=== PATIENT | male | born 1945 | race Caucasian/White ===

== ENCOUNTER 2017-01-14 10:15 | Outpatient (CLI) | payer MEDICARE | END 2017-01-14 10:16 | disposition home or self-care (01) | DX: R05 Cough (principal) ==

== ENCOUNTER 2022-07-11 23:14 | Emergency (ER) | payer MEDICARE ==
--- NOTE | 2022-07-12 00:14 | ED Physician Documentation ---
PD HPI UPPER EXT INJURY - Stated complaint Stated Complaint: FINGER INJ - Chief complaint Chief Complaint: Laceration - History obtained from History obtained from: Patient - History of Present Illness Location: Right, Finger Type of injury: Crush Where injury occurred: Work Timing - onset: Enter time (22:00), Today Timing - details: Abrupt onset Pain level now: 0 Associated symptoms: No: Numbness Contributing factors: No: Anticoagulated Recently seen: Not recently seen - Additonal information Additional information: at approximately 10 PM tonight, patient was leaving work when a heavy wood door closed on his right fifth finger, causing laceration. Despite obvious deformity, he is in NAD and says he is not having any pain. He says he is ambidextrous but favors his right hand. He is not UTD on tetanus; he says his last tetanus shot was many decades ago and it caused a severe allergic reaction. Review of Systems Skin: reports: Laceration (s) Musculoskeletal: reports: Other (patient denies pain despite obvious injury) PD PAST MEDICAL HISTORY - Past Medical History Past Medical History: No - Past Surgical History Past Surgical History: Yes Ortho: Arthroscopic surgery - Present Medications Home Medications: Ambulatory Orders Medication Instructions Recorded Confirmed No Known Home Medications 07/11/22 07/11/22 - Allergies Allergies/Adverse Reactions: Allergies Allergy/AdvReac Type Severity Reaction Status Date / Time tetanus and diphtheria AdvReac Cramps Verified 07/11/22 23:26 toxoids - Social History Does the pt smoke?: No Smoking Status: Never smoker - Immunizations Immunizations are current?: No Immunizations: TDAP current <10years PD ED PE NORMAL - Vitals Vital signs reviewed: Yes - General General: Alert and oriented X 3, No acute distress, Well developed/nourished - Neuro Neuro: No sensory deficit (LTS remains intact at finger tip) PD ED PE EXPANDED - Extremities Extremities: Other (right fifth finger: laceration along lateral/radial aspect from middle phalanx to tip of finger with extension of the laceration over dorsal surface of the DIP joint. No exposed bone or cartilege. Nail is avulsed from the proximal nail fold although it remains intact and adhesed to nail bed) Results - Vitals Vitals: Vital Signs - 24 hr 07/11/22 07/11/22 07/12/22 23:20 23:21 01:20 Temperature 36.5 C 36.5 C Heart Rate 65 65 56 L Respiratory 18 18 91 H Rate Blood Pressure 140/97 H 140/97 H 137/77 H O2 Saturation 96 96 96 Oxygen O2 Source Room air - Rads (name of study) right fifth finger Radiology: Prelim report reviewed, See rad report Procedures - Regional nerve block Nerve block site: Digital - note digit(s) (right fifth finger) Nerve block anesthesia: Lidocaine 1%, Marcaine 0.5% Nerve block aftercare: Excellent anesthesia, Patient tolerated well, No complications PD MEDICAL DECISION MAKING - ED course Complexity details: reviewed results, re-evaluated patient, considered differential, d/w patient ED course: large, wide laceration of fifth finger. Xrays show comminuted tuft fracture as well as a mildly displaced fracture at the base of the fifth distal phalanx with mild volar subluxation of the DIP joint. I performed a digital block and with minimal manipulation there was a palpable click consistent with reduction of the subluxation. Unfortunately this did not reduce the tension (due to swelling) on the wound edges which, at this time, will not allow for wound closure. I discussed the case with Dr. Torres; recommends splint with DIP in full extension and patient can follow up with him early in the coming week at which time delayed closure vs healing by secondary intention will be considered He is given keflex in ED with rx for same. He initially declines any prescription pain medication; I explained that I think it likely that as the digital block wears off, he will have pain that I suspect will not be adequately controlled with OTC medications and he agrees with rx for vicodin . He is instructed to keep splint on until he follows up with orthopedic surgery, and Dr. Torres's office / contact information is provided (hand-written discharge instructions due to [employer] down time). Return precautions discussed. A finger splint is placed prior to d/c with DIP in full extension Departure - Departure Disposition: 01 Home, Self Care Clinical Impression: Open finger fracture Qualifiers: Encounter type: initial encounter Finger: little finger Phalanx: distal Fracture alignment: nondisplaced Laterality: right Qualified Code(s): S62.666B - Nondisplaced fracture of distal phalanx of right little finger, initial encounter for open fracture Condition: Good Comments: SEE PAPER CHART ([employer] down time) for discharge instructions. Discharge Date/Time: 07/12/22 03:15
[2022-07-12] MEDS ORDERED: BUPIVACAINE 0.5% PF 10 ML VIAL SUBQ STA (00:46)
[2022-07-12] MEDS ORDERED: lidocaine 1% 20 ML MDV SUBQ STA (00:46)
--- NOTE | 2022-07-12 01:22 | XRAY Report ---
PROCEDURE: Finger(s) RT INDICATIONS: right fifth finger injury TECHNIQUE: AP hand, 2 additional views of the fifth digit acquired. COMPARISON: None. FINDINGS: Bones: There is a comminuted fracture involving the tuft of the fifth distal phalanx. A mildly displa gene fracture is also demonstrated at the base of the fifth distal phalanx with mild volar subluxation of the distal interphalangeal joint. Elsewhere, there is mild degeneration of the distal interphalan geal joints in the remaining digits. Soft tissues: There is soft tissue swelling of the fifth digit distally. IMPRESSION: 1. Fractures of the fifth distal phalanx as described with mild volar subluxation of the fifth digit the joint. Reviewed by: Abilio Ross MD on 07/12/2022 1:20 AM PDT Approved by: Abilio Ross MD on 07/12/2022 1:20 AM PDT Station ID: [id number]
[2022-07-12 01:29] VITALS: BP 137/77
[2022-07-12] MEDS ORDERED: cephALEXin 250 MG CAPSULE PO ONE (03:34)
== END 2022-07-12 03:15 | disposition home or self-care (01) ==
LOC: ED 23:14
DX: S62.666B Nondisplaced fracture of distal phalanx of right little finger, initial encounter for open fracture (principal); W23.1XXA Caught, crushed, jammed, or pinched between stationary objects, initial encounter; Y92.89 Other specified places as the place of occurrence of the external cause; Y99.0 Civilian activity done for income or pay
CPT/HCPCS: 26755; 73140; 99282; 99283; A9270

== ENCOUNTER 2022-07-17 13:49 | Emergency (ER) | payer MEDICARE ==
--- OUTSIDE RECORDS SUMMARY | 2022-07-17 13:56 | EXTERNAL MEDICAL SUMMARY RPT | Continuity of Care Document ---
:1945 Author Organization [facility] Address [address] [place] [address] Phone Care Team Providers Name Role Phone Unavailable Unavailable Unavailable Melissa Shepard Unavailable Unavailable Allergies No information. Encounters No information. Functional Status No information. Immunizations No information. Medications date description facility +0000 methylprednisolone All [id number] methylprednisolone All [id number]+0000 methylprednisolone All [id number]+0000 methylprednisolone All [id number]+0000 methylprednisolone All [id number]+0000 methylprednisolone All Problems No information. Procedures date description facility +0000 Visit Code Hold All [id number] Visit Code Hold All [id number] XR SHOULDER 2-3 VIEW All [id number]+0000 XR SHOULDER 2-3 VIEW All Results/Labs No information. Social History date description facility +0000 Unknown if ever smoked All Vital Signs date measurement value units [id number] BMI BMI 26.77 kg/m2 [id number]+0000 BP_diastolic BP_diastolic 85 mmHg [id number]+0000 BP_diastolic BP_diastolic 85 mm[H g] [id number]+0000 BP_systolic BP_systolic 144 mmHg [id number]+0000 BP_systolic BP_systolic 144 mm[Hg] 91821402137515+0000 heart_rate heart_rate 51 /min 83219316131189+0000 height_metric height_metric 173.99 cm 58502565056575+0000 height_standard height_standard 68.5 in [id number]+0000 respiration_rate respiration_rate 16 /min [id number]+0000 weight_metric weight_metric 80.74 kg 84276888449597+0000 weight_standard weight_standard 178 lb
[2022-07-17] MEDS ORDERED: BUPIVACAINE 0.5% PF 10 ML VIAL SUBQ STA (16:39)
[2022-07-17] MEDS ORDERED: BUPIVACAINE 0.5% PF 30 ML VIAL ONE (17:13)
--- NOTE | 2022-07-17 17:33 | ED Physician Documentation ---
PD HPI WOUND RECHECK - Stated complaint Stated Complaint: R HAND INJ - Chief complaint Chief Complaint: Wound - Histroy obtained from History obtained from: Patient - History of Present Illness Location: Other (right 5th digit) Pain level max: 4 Pain level now: 3 Associated symptoms: Swelling, Pain. No: Fever, Redness - Additional information Additional information: Patient is a 77-year-old male who presents to the emergency department stating that about a week ago he accidentally slammed his right fifth digit into a door. He states he has been unable to get in with orthopedics so came here for evaluation. No fevers. No chills. Is having continued pain. Is currently on Keflex. Review of Systems Constitutional: denies: Fever, Chills GI: denies: Vomiting, Diarrhea Skin: denies: Rash PD PAST MEDICAL HISTORY - Past Medical History Past Medical History: No - Past Surgical History Past Surgical History: Yes Ortho: Arthroscopic surgery - Present Medications Home Medications: Ambulatory Orders Medication Instructions Recorded Confirmed cephALEXin [Keflex] 500 mg PO Q6H #28 cap 07/17/22 - Allergies Allergies/Adverse Reactions: Allergies Allergy/AdvReac Type Severity Reaction Status Date / Time tetanus and diphtheria AdvReac Cramps Verified 07/17/22 14:17 toxoids - Living Situation Living Arrangement: reports: At home - Social History Does the pt smoke?: No Smoking Status: Never smoker Does the pt have substance abuse?: No - Family History Family history: reports: Non contributory - Immunizations Immunizations are current?: No Immunizations: TDAP current <10years PD ED PE NORMAL - Vitals Vital signs reviewed: Yes - General General: Alert and oriented X 3, No acute distress - Derm Derm: Warm and dry - Extremities Extremities: Other (R 5th digit - The bandages were removed from the patient. The entire dressing was wrapped in a plastic bag and sealed with tape. The dressing is very wet. The finger is swollen. The nail is partially avulsed. There is white skin at the nail fold. No purulent drainage.) - Neuro Neuro: Alert and oriented X 3 Results - Vitals Vitals: Vital Signs - 24 hr 07/17/22 07/17/22 14:12 17:50 Temperature 36.6 C 36.6 C Heart Rate 65 60 Respiratory 16 16 Rate Blood Pressure 130/72 144/78 H O2 Saturation 98 98 Oxygen O2 Source Room air PD MEDICAL DECISION MAKING - ED course Complexity details: reviewed old records, considered differential, d/w patient, d/w bus info consultant ED course: Patient with a significant open fracture and nailbed injury/nail injury/finger laceration to the right fifth digit. I consulted orthopedics, Dr. Torres who recommended wound care, splint in extension and follow-up in the office. He did come and evaluate the patient in person. Due to the swelling, complete approximation was not possible, therefore sutures were used to reapproximate the wound as best I could. Marcaine 0.5% was used as a digital block. There is suture placed at the proximal aspect of the nail to keep the nail under the nail fold, the nail fold was then sutured to the finger. The lateral aspect of the nail was used to suture to the lateral aspect of the finger. Xeroform was then applied, clean gauze was applied around this and then the entire finger was juan diego gene into an extension splint. We will continue Keflex and have him follow-up closely with orthopedics for wound checks. Patient counseled regarding signs and symptoms for which I believe and urgent re-evaluation would be necessary. Patient with good understanding of and agreement to plan and is comfortable going home at this time This document was made in part using voice recognition software. While efforts are made to proofread this document, sound alike and grammatical errors may occur. Departure - Departure Disposition: 01 Home, Self Care Clinical Impression: Open finger fracture Qualifiers: Encounter type: initial encounter Finger: little finger Phalanx: proximal Fracture alignment: displaced Laterality: right Qualified Code(s): S62.616B - Displaced fracture of proximal phalanx of right little finger, initial encounter for open fracture Finger laceration Qualifiers: Encounter type: initial encounter Finger: unspecified finger Damage to nail status: with damage Foreign body presence: without foreign body Laterality: right Qualified Code(s): S61.319A - Laceration without foreign body of unspecified finger with damage to nail, initial encounter Condition: Good Instructions: ED Fx Finger Open Follow-Up: Gavin Torres MD [Provider Admit Priv/Credential] - Within 3 Days Prescriptions: cephALEXin [Keflex] 500 mg PO Q6H #28 cap Comments: Your prescription was sent to [facility] in [place]. Please follow-up with Dr. Torres within 3 days for wound check. Return if you worsen. Change the outer dressing daily. Keep the wound clean. Discharge Date/Time: 07/17/22 17:50
[2022-07-17 18:18] VITALS: BP 144/78
== END 2022-07-17 17:50 | disposition home or self-care (01) ==
LOC: ED 13:49
DX: S62.616B Displaced fracture of proximal phalanx of right little finger, initial encounter for open fracture (principal); W23.0XXA Caught, crushed, jammed, or pinched between moving objects, initial encounter
CPT/HCPCS: 99282; 99283

== ENCOUNTER 2022-07-18 08:46 | Outpatient (CLI) | payer MEDICARE ==
--- NOTE | 2022-07-18 17:49 | MRI Report ---
PROCEDURE: Shoulder RT W/O INDICATIONS: PAIN IN RIGHT SHOULDER TECHNIQUE: Noncontrast oblique coronal T2 fast spin echo with fat saturation, oblique sagittal T1 spin echo and T2 fast spin echo with fat saturation, axial T1 spin echo and T2 fast spin echo with fat saturation t hrough the shoulder. COMPARISON: Right shoulder radiograph dated 06/11/2022. FINDINGS: Image quality: Excellent. Rotator cuff: Moderate grade articular and bursal surface partial-thickness tear involving distal sup raspinatus and infraspinatus at their insertion on humeral head is seen extending to musculotendinous junction. Low to moderate grade partial-thickness tear involving superior to mid fibers of distal hinkle bscapularis is also seen. No gross full-thickness rotator cuff tendon rupture. Mild supraspinatus mus suzie atrophy is seen on sagittal images. Bones and bursae: Moderate acromioclavicular joint osteoarthritic changes are seen with joint space n arrowing, subchondral sclerosis and downward osteophyte formation depressing on musculotendinous junc tion of supraspinatus. Moderate glenohumeral joint osteoarthritic changes also seen with joint space narrowing and subchondral sclerosis. Nonspecific subcortical cystic changes are noted involving great er tuberosity of humeral head near rotator cuff tendon insertion. No fracture or dislocation. Moderat e subacromial subdeltoid bursal fluid is seen, no gross loose bodies. Capsule and soft tissues: There is signal abnormality and contour irregularity involving superior ant erior labrum at 12 to 2:00 position. There is also suggestion of anterior inferior labral tear at 5 t o 6:00 position. The long head of the biceps tendon is thickened with intrasubstance T2 hyperintense signal intra-articularly.. The rotator interval appears normal, without fibrosis. The coracohumeral ligament is normal in thickness. IMPRESSION: 1. Moderate grade articular and bursal surface partial-thickness tear involving distal supraspinatus and infraspinatus extending to musculotendinous junction. Low to moderate grade partial-thickness tea r involving superior to mid fibers of distal subscapularis. No full-thickness rotator cuff tendon rup ture. Mild supraspinatus muscle atrophy. 2. Moderate acromioclavicular joint and glenohumeral joint osteoarthritis. No fracture or dislocation . Moderate subacromial subdeltoid bursal fluid. 3. Suggestion of superior anterior labral tear at 12 to 2:00 position an anterior inferior labral tea r at 5 to 6:00 position. 4. Tendinosis and low to moderate grade partial-thickness tear involving proximal intra-articular por tion of long head of biceps. Reviewed by: Alexis Warren MD on 07/18/2022 5:48 PM PDT Approved by: Alexis Warren MD on 07/18/2022 5:48 PM PDT Station ID: [id number]
== END 2022-07-18 08:47 | disposition home or self-care (01) ==
LOC: DI 08:46
PROVIDERS: ATTEND Registered Nurse
DX: M75.111 Incomplete rotator cuff tear or rupture of right shoulder, not specified as traumatic (principal); M19.011 Primary osteoarthritis, right shoulder

== ENCOUNTER 2022-07-19 08:00 | Outpatient (CLI) | payer MEDICARE ==
--- NOTE | 2022-07-19 17:31 | XRAY Report ---
PROCEDURE: Hand 3 View RT INDICATIONS: HAND PAIN TECHNIQUE: 3 views of the hand(s) acquired. COMPARISON: X-ray right fifth finger 07/12/2022, FINDINGS: Bones: There is a comminuted fracture of the tip of the fifth distal phalanx. In addition, there is a volar plate fracture at the base of the fifth distal phalanx. There is a subluxation at the fifth d istal interphalangeal joint. Overall, the alignments are unchanged. Soft tissues: Soft tissue calcifications noted in the base of the second finger. Soft tissue swellin g and irregularity of the distal fifth finger. IMPRESSION: 1. Fracture and subluxation of the fifth distal phalanx. 2. Soft tissue swelling of the distal fifth finger. Reviewed by: Kaila Srivastava MD on 07/19/2022 5:30 PM PDT Approved by: Kaila Srivastava MD on 07/19/2022 5:30 PM PDT Station ID: [id number]
== END 2022-07-19 23:59 | disposition home or self-care (01) ==
LOC: DI.WOS 08:00
PROVIDERS: ATTEND Orthopaedic Surgery
DX: S62.636D Displaced fracture of distal phalanx of right little finger, subsequent encounter for fracture with routine healing (principal)

== ENCOUNTER 2022-08-14 08:00 | Outpatient (CLI) | payer MEDICARE ==
--- NOTE | 2022-08-14 15:37 | XRAY Report ---
PROCEDURE: Shoulder 1 View RT INDICATIONS: RIGHT SHOULDER PX AXILLARY VIEW ONLY TECHNIQUE: 1 view of the shoulder (axillary view) acquired. COMPARISON: Right shoulder radiographs 06/11/2022. FINDINGS: Bones: No evidence of glenohumeral joint dislocation. No acute fracture visualized on this single vie w. No definite os acromiale identified. Soft tissues: No suspicious soft tissue calcifications. IMPRESSION: No evidence of acute fracture or dislocation on this single view exam. Reviewed by: Francis Rosen MD on 08/14/2022 3:35 PM PDT Approved by: Francis Rosen MD on 08/14/2022 3:35 PM PDT Station ID: [id number]
== END 2022-08-14 23:59 | disposition home or self-care (01) ==
LOC: DI.WOS 08:00
PROVIDERS: ATTEND Orthopaedic Surgery
DX: M25.511 Pain in right shoulder (principal)